=== PATIENT | male | born 1970 | race Caucasian/White ===

== ENCOUNTER 2016-11-11 15:56 | Inpatient (IN) | payer OTHER ==
[2016-11-11] MEDS ORDERED: DILTIAZEM 125 MG in SODIUM CHLORIDE 0.9% 100 ML IV ONE (15:58)
[2016-11-11] MEDS ORDERED: SODIUM CHLORIDE 0.9% 1,000 ML IV ONE (15:58)
[2016-11-11] MEDS ORDERED: NITROGLYCERIN OINT 1 INCH/GM PACKET TOPICAL STA (15:58)
[2016-11-11] MEDS ORDERED: ASPIRIN 81 MG CHEW PO STA (15:58)
[2016-11-11] MEDS ORDERED: HEPARIN SODIUM,PORCINE 5,000 UNIT/ML 1 ML VIAL IV ONE (16:00)
[2016-11-11] MEDS ORDERED: DILTIAZEM 5 MG/ML 5 ML VIAL IVP STA (16:01)
--- NOTE | 2016-11-11 16:06 | ED ---
General Adult HPI - General Chief complaint: Chest Pain Stated complaint: Chest Pain Time Seen by Provider: 11/11/16 16:00 Source: patient, RN notes reviewed Mode of arrival: ambulatory Limitations: no limitations - History of Present Illness Initial comments: This is a 45-year-old male who has a past medical history significant for OR with no intervention according to the patient. Patient states after his OR he had intermittent atrial fibrillation but he never followed up with a club steward for. Patient states he has had episodes of this pressure sensation in his chest but usually goes away. Patient states over the last 3 days been much more frequent and today about a half hour prior to arrival it became constant and much more significant. Patient states is very steady pressure in the center of his chest and he is also short of breath per patient denies any radiation of this pressure. Patient denies any sweating patient denies any nausea or vomiting. Patient states she does have anxiety is very anxious and he feels his fingers and mouth getting tingling. Patient denies any recent fever chills or cough. Patient denies any leg swelling or calf pain. - Related Data Allergies Allergy/AdvReac Type Severity Reaction Status Date / Time No Known Allergies Allergy Verified 11/11/16 16:01 Review of Systems ROS Statement: Those systems with pertinent positive or pertinent negative responses have been documented in the HPI. ROS Other: All systems not noted in ROS Statement are negative. Past Medical History Past Medical History: Memory Impairment Additional Past Medical History / Comment(s): sleep apnea, difficulty sleeping History of Any Multi-Drug Resistant Organisms: None Reported Additional Past Surgical History / Comment(s): colonoscopy Past Psychological History: Anxiety Smoking Status: Current every day smoker Past Alcohol Use History: Occasional Past Drug Use History: None Reported General Exam - General Exam Comments Initial Comments: GENERAL: Patient is well-developed and well-nourished. Patient is nontoxic and well- hydrated and is in moderate distress. ENT: Neck is soft and supple. No significant lymphadenopathy is noted. Oropharynx is clear. Moist mucous membranes. Neck has full range of motion without eliciting any pain. EYES: The sclera were anicteric and conjunctiva were pink and moist. Extraocular movements were intact and pupils were equal round and reactive to light. Eyelids were unremarkable. PULMONARY: Unlabored respirations. Good breath sounds bilaterally. No audible rales rhonchi or wheezing was noted. CARDIOVASCULAR: Patient is very tachycardic in the 150 beats a minute. ABDOMEN: Soft and nontender with normal bowel sounds. No palpable organomegaly was noted. There is no palpable pulsatile mass. SKIN: Skin is clear with no lesions or rashes and otherwise unremarkable. NEUROLOGIC: Patient is alert and oriented x3. Cranial nerves II through XII are grossly intact. Motor and sensory are also intact. Normal speech, volume and content. Symmetrical smile. MUSCULOSKELETAL: Normal extremities with adequate strength and full range of motion. No lower extremity swelling or edema. No calf tenderness. LYMPHATICS: No significant lymphadenopathy is noted PSYCHIATRIC: Patient is very anxious Limitations: no limitations Course Vital Signs 11/11/16 11/11/16 15:58 16:52 Temperature 98.5 F Pulse Rate 164 H 118 H Respiratory 22 20 Rate Blood Pressure 126/58 116/54 O2 Sat by Pulse 100 100 Oximetry Medical Decision Making - Medical Decision Making EKG shows atrial fibrillation with rapid ventricular response at 154 bpm QRS is 96 QT interval 300 QTC is 480. Patient's EKG shows ST segment depression in leads V2 through V6 as well as T-wave inversions in inferior leads. I spoke with Dr. Villegas and let him know that the EKG had changes in the patient's pressure he wanted the patient put on heparin had a Cardizem drip started as well as giving the patient some Lopressor. I also gave the patient aspirin and Nitropaste. I also gave the patient Ativan secondary for his anxiety. I'll do Lopressor to start this patient's blood pressure was coming down and his heart rate was coming down with Cardizem drip. - Lab Data Result diagrams: 11/11/16 16:00 11/11/16 16:00 Lab Results 11/11/16 11/11/16 11/11/16 Range/Units 16:00 16:00 16:00 WBC 11.8 H (3.8-10.6) k/uL RBC 4.92 (4.30-5.90) m/uL Hgb 15.3 (13.0-17.5) gm/dL Hct 42.3 (39.0-53.0) % MCV 86.0 (80.0-100.0) fL MCH 31.1 (25.0-35.0) pg MCHC 36.1 (31.0-37.0) g/dL RDW 12.6 (11.5-15.5) % Plt Count 285 (150-450) k/uL Neutrophils % 41 % Lymphocytes % 44 % Monocytes % 8 % Eosinophils % 3 % Basophils % 1 % Neutrophils # 4.9 (1.3-7.7) k/uL Lymphocytes # 5.2 H (1.0-4.8) k/uL Monocytes # 0.9 (0-1.0) k/uL Eosinophils # 0.4 (0-0.7) k/uL Basophils # 0.1 (0-0.2) k/uL Manual Slide Review Performed Toxic Granulation Present PT (9.0-12.0) sec INR (<1.1) APTT (22.0-30.0) sec Sodium 140 (137-145) mmol/L Potassium 3.7 (3.5-5.1) mmol/L Chloride 104 (98-107) mmol/L Carbon Dioxide 19 L (22-30) mmol/L Anion Gap 17 mmol/L BUN 14 (9-20) mg/dL Creatinine 0.80 (0.66-1.25) mg/dL Est GFR (MDRD) Af Amer >60 (>60 ml/min/1.73 sqM) Est GFR (MDRD) Non-Af >60 (>60 ml/min/1.73 sqM) Glucose 107 H (74-99) mg/dL Calcium 9.4 (8.4-10.2) mg/dL Magnesium 2.0 (1.6-2.3) mg/dL Total Bilirubin 0.5 (0.2-1.3) mg/dL AST 31 (17-59) U/L ALT 52 (21-72) U/L Alkaline Phosphatase 92 (38-126) U/L Total Creatine Kinase 101 (55-170) U/L CK-MB (CK-2) 0.7 (0.0-2.4) ng/mL CK-MB (CK-2) Rel Index 0.7 Troponin I <0.012 (0.000-0.034) ng/mL Total Protein 7.3 (6.3-8.2) g/dL Albumin 4.4 (3.5-5.0) g/dL 11/11/16 Range/Units 16:00 WBC (3.8-10.6) k/uL RBC (4.30-5.90) m/uL Hgb (13.0-17.5) gm/dL Hct (39.0-53.0) % MCV (80.0-100.0) fL MCH (25.0-35.0) pg MCHC (31.0-37.0) g/dL RDW (11.5-15.5) % Plt Count (150-450) k/uL Neutrophils % % Lymphocytes % % Monocytes % % Eosinophils % % Basophils % % Neutrophils # (1.3-7.7) k/uL Lymphocytes # (1.0-4.8) k/uL Monocytes # (0-1.0) k/uL Eosinophils # (0-0.7) k/uL Basophils # (0-0.2) k/uL Manual Slide Review Toxic Granulation PT 10.4 (9.0-12.0) sec INR 1.0 (<1.1) APTT 26.6 (22.0-30.0) sec Sodium (137-145) mmol/L Potassium (3.5-5.1) mmol/L Chloride (98-107) mmol/L Carbon Dioxide (22-30) mmol/L Anion Gap mmol/L BUN (9-20) mg/dL Creatinine (0.66-1.25) mg/dL Est GFR (MDRD) Af Amer (>60 ml/min/1.73 sqM) Est GFR (MDRD) Non-Af (>60 ml/min/1.73 sqM) Glucose (74-99) mg/dL Calcium (8.4-10.2) mg/dL Magnesium (1.6-2.3) mg/dL Total Bilirubin (0.2-1.3) mg/dL AST (17-59) U/L ALT (21-72) U/L Alkaline Phosphatase (38-126) U/L Total Creatine Kinase (55-170) U/L CK-MB (CK-2) (0.0-2.4) ng/mL CK-MB (CK-2) Rel Index Troponin I (0.000-0.034) ng/mL Total Protein (6.3-8.2) g/dL Albumin (3.5-5.0) g/dL Critical Care Time Critical Care Time: Yes Total Critical Care Time: 35 Disposition Clinical Impression: Atrial fibrillation with rapid ventricular response Disposition: ADMITTED IP TO THIS HOSP Referrals: Nonstaff,Physician [Primary Care Provider] - 1-2 days Time of Disposition: 16:55
[2016-11-11] MEDS: HEPARIN SODIUM,PORCINE/D5W PMX 25,000 UNIT in DEXTROSE/WATER 1 500ML.BAG IV SCH (16:12)
[2016-11-11 16:19] LABS: Basophils # (A) 0.1 k/uL (0-0.2); Basophils % (A) 1 %; CH 30.4; CHCM 35.5; Eosinophils # (A) 0.4 k/uL (0-0.7); Eosinophils % (A) 3 %; HCT 42.3 % (39.0-53.0); HDW 2.68; HGB 15.3 gm/dL (13.0-17.5); Luc # (Auto) 0.38; Luc % (Auto) 3; Lymphocytes # (A) 5.2 k/uL (1.0-4.8); Lymphocytes % (A) 44 %; MCH 31.1 pg (25.0-35.0); MCHC 36.1 g/dL (31.0-37.0); Mean Platelet Volume 6.8; Monocytes # (A) 0.9 k/uL (0-1.0); Monocytes % (A) 8 %; Neutrophils # (A) 4.9 k/uL (1.3-7.7); Neutrophils % (A) 41 %; RBC 4.92 m/uL (4.30-5.90); RDW 12.6 % (11.5-15.5); WBC 11.8 k/uL (3.8-10.6); WBC (Perox) 10.73
[2016-11-11 16:27] LABS: Partial Thromboplastin Time 26.6 sec (22.0-30.0); Prothrombin Time 10.4 sec (9.0-12.0)
--- NOTE | 2016-11-11 16:30 | XR ---
EXAMINATION TYPE: XR chest 2V DATE OF EXAM: 11/11/2016 COMPARISON: NONE INDICATION: Chest pain TECHNIQUE: Frontal and lateral views of the chest are obtained. FINDINGS: The heart size is normal. The pulmonary vasculature is normal. The lungs are clear. IMPRESSION: 1. No acute pulmonary process.
[2016-11-11 16:31] LABS: Manual Review Performed; Toxic Granulation Present
[2016-11-11 16:34] LABS: ALT 52 U/L (21-72); AST 31 U/L (17-59); Alkaline Phosphatase 92 U/L (38-126); Anion Gap 17 mmol/L; Blood Urea Nitrogen 14 mg/dL (9-20); Calcium 9.4 mg/dL (8.4-10.2); Carbon Dioxide 19 mmol/L (22-30); Chloride 104 mmol/L (98-107); Glucose 107 mg/dL (74-99); Non-African American GFR(MDRD) >60 (>60 ml/min/1.73 sqM); Potassium 3.7 mmol/L (3.5-5.1); Sodium 140 mmol/L (137-145); Total Bilirubin 0.5 mg/dL (0.2-1.3); Total Protein 7.3 g/dL (6.3-8.2)
[2016-11-11 16:36] LABS: Creatine Kinase 101 U/L (55-170)
[2016-11-11 16:49] LABS: Creatine Kinase MB 0.7 ng/mL (0.0-2.4); Troponin I <0.012 ng/mL (0.000-0.034)
[2016-11-11] MEDS ORDERED: NITROGLYCERIN SL TABS 0.4 MG TAB SUBLINGUAL PRN (16:55)
[2016-11-11] MEDS: METOPROLOL TARTRATE 5 MG/5 ML VIAL IVP SCH (17:08)
[2016-11-11 18:35] VITALS: BMI 28.4
[2016-11-11] MEDS ORDERED: TEMAZEPAM 30 MG CAP PO SCH (21:00)
[2016-11-11 22:23] VITALS: RESP 18
[2016-11-11 22:39] LABS: Creatine Kinase MB 0.7 ng/mL (0.0-2.4)
[2016-11-11 22:45] LABS: Troponin I 0.048 ng/mL (0.000-0.034)
[2016-11-11] MEDS ORDERED: ALPRAZolam 0.25 MG TAB PO PRN (23:17)
[2016-11-11] MEDS ORDERED: Acetaminophen-Codeine 300-30mg TAB PO PRN (23:24)
[2016-11-11] MEDS ORDERED: TEMAZEPAM 15 MG CAP PO SCH (23:27)
[2016-11-12] MEDS ORDERED: NITROGLYCERIN OINT 1 INCH/GM PACKET TOPICAL SCH
[2016-11-12 00:15] LABS: Appearance,Urine Clear (Clear); Bilirubin,Urine Negative (Negative); Glucose,Urine (UA) Negative (Negative); Ketones,Urine Negative (Negative); Leukocyte Esterase,Urine Negative (Negative); Nitrite,Urine Negative (Negative); Protein,Urine Negative (Negative); Specific Gravity,Urine 1.008 (1.001-1.035); UA Billing (MACRO vs. MICRO) CHEM; Urobilinogen,Urine <2.0 mg/dL (<2.0)
[2016-11-12 04:53] LABS: Basophils # (A) 0.1 k/uL (0-0.2); Basophils % (A) 1 %; CH 29.9; CHCM 34.3; Eosinophils # (A) 0.3 k/uL (0-0.7); Eosinophils % (A) 3 %; HCT 40.5 % (39.0-53.0); HDW 2.63; HGB 13.9 gm/dL (13.0-17.5); Luc # (Auto) 0.22; Luc % (Auto) 2; Lymphocytes # (A) 2.8 k/uL (1.0-4.8); Lymphocytes % (A) 27 %; MCH 30.1 pg (25.0-35.0); MCHC 34.5 g/dL (31.0-37.0); MCV 87.4 fL (80.0-100.0); Mean Platelet Volume 6.6; Monocytes # (A) 0.7 k/uL (0-1.0); Monocytes % (A) 7 %; Neutrophils # (A) 6.4 k/uL (1.3-7.7); Neutrophils % (A) 61 %; RBC 4.63 m/uL (4.30-5.90); RDW 12.3 % (11.5-15.5); WBC 10.4 k/uL (3.8-10.6); WBC (Perox) 10.96
[2016-11-12 05:08] LABS: Anion Gap 9 mmol/L; Blood Urea Nitrogen 11 mg/dL (9-20); Calcium 8.8 mg/dL (8.4-10.2); Carbon Dioxide 24 mmol/L (22-30); Chloride 108 mmol/L (98-107); Cholesterol 160 mg/dL (<200); Glucose 97 mg/dL (74-99); HDL Cholesterol 42 mg/dL (40-60); Non-African American GFR(MDRD) >60 (>60 ml/min/1.73 sqM); Potassium 4.2 mmol/L (3.5-5.1); Sodium 141 mmol/L (137-145); Triglycerides 55 mg/dL (<150)
[2016-11-12 05:46] LABS: Creatine Kinase MB 0.6 ng/mL (0.0-2.4)
[2016-11-12 05:48] LABS: Troponin I 0.038 ng/mL (0.000-0.034)
[2016-11-12] MEDS ORDERED: ASPIRIN 325 MG TAB PO SCH (09:00)
[2016-11-12] MEDS ORDERED: PANTOPRAZOLE 40 MG TABLET PO SCH (09:00)
[2016-11-12] MEDS: HEPARIN SODIUM,PORCINE/D5W PMX 25,000 UNIT in DEXTROSE/WATER 1 500ML.BAG IV SCH (09:20)
[2016-11-12 11:54] VITALS: BP 116/76; PULSE 76; TEMP 97
--- NOTE | 2016-11-12 15:14 | P.CRDCN ---
History of Present Illness Consult date: 11/12/16 History of present illness: This is a 45-year-old gentleman with history of paroxysmal cardiac arrhythmias for which he has been in the emergency room several times. He claims that in 2009, he had a prolonged episode of palpitations and was evaluated in the hospital. At that time patient had probably atrial fibrillation with mildly elevated troponin values. Subsequently was seen by a measurement coordinator and had a stress test and echocardiogram which were negative. As. Over the last several years. Patient has had episodes of intermittent palpitations lasting about 25 minutes. Patient came to [place] to visit family and friends. He is admitted to the hospital with prolonged episode of palpitations. He was found to be any atrial fibrillation with rapid ventricular response. Patient was treated with heparin and IV Cardizem. Patient converted back to sinus rhythm. He wants to go home. Patient will have follow-up with measurement coordinator one he goes back to [place]. Review of Systems REVIEW OF SYSTEMS: CONSTITUTIONAL:. Patient is doing well. No complaints of fever or chills EYES: Denies diplopia, blurring of vision EARS, NOSE, MOUTH, THROAT: Denies headaches, denies sore throat. CARDIOVASCULAR: As per HPI RESPIRATORY: Denies shortness of breath, denies cough. GASTROINTESTINAL: Denies change in appetite, denies abdominal pain, denies diarrhea GENITOURINARY: Denies hematuria, denies infections. MUSKULOSKELETAL: Denies pain, denies swelling. Denies any cramps or claudication INTEGUMENTARY: Denies rash, denies eczema. NEUROLOGICAL: Denies focal weakness, or visual disturbance. Denies any dizziness or syncope PSYCHIATRIC: Denies anxiety, denies depression. HEMATOLOGIC/LYMPHATIC: Denies any bleeding, denies enlarged lymph nodes. Past Medical History Past Medical History: Atrial Fibrillation, Chest Pain / Angina, GERD/Reflux, Memory Impairment, Osteoarthritis (OA), Syncope Additional Past Medical History / Comment(s): sleep apnea, difficulty sleeping History of Any Multi-Drug Resistant Organisms: None Reported Additional Past Surgical History / Comment(s): colonoscopy,stress test Past Anesthesia/Blood Transfusion Reactions: No Reported Reaction Past Psychological History: Anxiety, PTSD Additional Psychological History / Comment(s): hx of service >20 years Smoking Status: Current every day smoker Past Alcohol Use History: Occasional Past Drug Use History: None Reported - Past Family History Father Family Medical History: Coronary Artery Disease (CAD), Diabetes Mellitus Additional Family Medical History / Comment(s): CABG Mother Family Medical History: Diabetes Mellitus, Hypertension Medications and Allergies Home Medications Medication Instructions Recorded Confirmed Type Eszopiclone [Lunesta] 3 mg PO HS 11/11/16 11/11/16 History Pantoprazole Sodium [Protonix] 40 mg PO DAILY 11/11/16 11/11/16 History Allergies Allergy/AdvReac Type Severity Reaction Status Date / Time No Known Allergies Allergy Verified 11/11/16 16:58 Physical Exam Vitals: Vital Signs Temp Pulse Pulse Resp BP BP Pulse Ox 11/12/16 11:52 97 F L 76 18 116/76 94 L 11/12/16 08:49 97.9 F 72 18 97/54 95 11/12/16 04:00 97.1 F L 72 18 94/57 94 L 11/11/16 23:00 97.0 F L 78 18 109/61 95 11/11/16 20:00 97.9 F 86 18 122/72 95 11/11/16 18:30 99.2 F 99 16 108/72 97 11/11/16 17:45 98.3 F 101 H 18 117/68 99 11/11/16 17:34 99.2 F 99 16 108/72 97 11/11/16 17:09 92 18 11/11/16 16:52 118 H 20 116/54 100 11/11/16 15:58 98.5 F 164 H 22 126/58 100 Intake and Output 11/12/16 11/12/16 11/12/16 06:59 14:59 22:59 Intake Total 175.182 453.558 Balance 175.182 453.558 Intake: Intake, IV Titration 175.182 93.558 Amount Heparin Sodium,Porcine/ 175.182 93.558 D5w Pmx 25,000 unit In Dextrose/Water 1 500ml. bag @ 11 UNITS/KG/HR 19. 95 mls/hr IV .Q24H COUNT INCLUDES THE [facility] Rx #:[id number] Oral 360 Other: Voiding Method Toilet Toilet # Voids 2 2 # Bowel Movements 0 Weight 91.8 kg GENERAL EXAM: Patient is alert and oriented and doesn't appear to be in any acute distress HEENT: Normocephalic. Normal reaction of pupils, equal size, normal range of extraocular motion. No erythema or exudates in the throat. NECK: No masses, no nuchal rigidity. CHEST: No chest wall deformity. LUNGS: Equal air entry with no crackles or wheeze. HEART: S1 and S2 normal with no audible mumurs or gallops. Regular rhythm, femorals equal on both sides.. ABDOMEN: No hepatosplenomegaly, normal bowel sounds, no guarding or rigidity. SKIN: No rashes CENTRAL NERVOUS SYSTEM: No focal deficits. EXTREMITIES: No cyanosis, clubbing or edema. Results 11/12/16 04:14 11/12/16 04:14 Cardiac Enzymes 11/11/16 11/11/16 11/11/16 Range/Units 16:00 16:00 21:51 AST 31 (17-59) U/L CK-MB (CK-2) 0.7 0.7 (0.0-2.4) ng/mL Troponin I <0.012 0.048 H* (0.000-0.034) ng/mL 11/12/16 Range/Units 04:14 AST (17-59) U/L CK-MB (CK-2) 0.6 (0.0-2.4) ng/mL Troponin I 0.038 H* (0.000-0.034) ng/mL Coagulation 11/11/16 11/11/16 11/12/16 Range/Units 16:00 21:51 04:14 PT 10.4 (9.0-12.0) sec APTT 26.6 42.8 H 46.3 H (22.0-30.0) sec 11/12/16 Range/Units 12:05 PT (9.0-12.0) sec APTT 50.9 H (22.0-30.0) sec Lipids 11/12/16 Range/Units 04:14 Triglycerides 55 (<150) mg/dL Cholesterol 160 (<200) mg/dL HDL Cholesterol 42 (40-60) mg/dL CBC 11/11/16 11/12/16 Range/Units 16:00 04:14 WBC 11.8 H 10.4 (3.8-10.6) k/uL RBC 4.92 4.63 (4.30-5.90) m/uL Hgb 15.3 13.9 (13.0-17.5) gm/dL Hct 42.3 40.5 (39.0-53.0) % Plt Count 285 243 (150-450) k/uL Comprehensive Metabolic Panel 11/11/16 11/12/16 Range/Units 16:00 04:14 Sodium 140 141 (137-145) mmol/L Potassium 3.7 4.2 (3.5-5.1) mmol/L Chloride 104 108 H (98-107) mmol/L Carbon Dioxide 19 L 24 (22-30) mmol/L BUN 14 11 (9-20) mg/dL Creatinine 0.80 0.69 (0.66-1.25) mg/dL Glucose 107 H 97 (74-99) mg/dL Calcium 9.4 8.8 (8.4-10.2) mg/dL AST 31 (17-59) U/L ALT 52 (21-72) U/L Alkaline Phosphatase 92 (38-126) U/L Total Protein 7.3 (6.3-8.2) g/dL Albumin 4.4 (3.5-5.0) g/dL Current Medications Generic Name Dose Route Start Last Admin Trade Name Freq PRN Reason Stop Dose Admin Acetaminophen/Codeine Phosphate 1 each 11/11/16 23:24 Tylenol #3 PO Q6HR PRN Pain Alprazolam 0.25 mg 11/11/16 23:17 Xanax PO TID PRN Anxiety Aspirin 325 mg 11/12/16 09:00 11/12/16 08:48 Aspirin PO 325 mg DAILY TOBI Administration Heparin Sodium/Dextrose 25,000 500 mls @ 19.95 mls/hr 11/11/16 16:00 09:20 unit/ IV Solution IV 15.02 units/kg/hr .Q24H TOBI 27.25 mls/hr Protocol Administration 11 UNITS/KG/HR Nitroglycerin 0.4 mg 11/11/16 16:55 Nitrostat SUBLINGUAL Q5M PRN Chest Pain Pantoprazole Sodium 40 mg 11/12/16 09:00 11/12/16 08:48 Protonix PO 40 mg DAILY TOBI Administration Temazepam 15 mg 11/11/16 23:27 Restoril PO HS TOBI Intake and Output 11/12/16 11/12/16 11/12/16 06:59 14:59 22:59 Intake Total 175.182 453.558 Balance 175.182 453.558 Intake: Intake, IV Titration 175.182 93.558 Amount Heparin Sodium,Porcine/ 175.182 93.558 D5w Pmx 25,000 unit In Dextrose/Water 1 500ml. bag @ 11 UNITS/KG/HR 19. 95 mls/hr IV .Q24H TOBI Rx #:[id number] Oral 360 Other: Voiding Method Toilet Toilet # Voids 2 2 # Bowel Movements 0 Weight 91.8 kg 11/12/16 04:14 11/12/16 04:14 EKG Interpretations (text) Initial EKG showed atrial fibrillation with RVR. Subsequent EKG showed sinus rhythm without any acute ST-T changes. Assessment and Plan (1) Persistent atrial fibrillation Status: Acute (2) Atrial fibrillation with rapid ventricular response Status: Acute Plan: Patient is back in sinus rhythm and is feeling well. His troponins are borderline elevated, Most probably related to tachycardia and atrial fibrillation. Patient wants to go home. He is being discharged home on small dose of beta shweta and aspirin. Patient will have follow-up with his own measurement coordinator
[2016-11-12] MEDS ORDERED: METOPROLOL TARTRATE 12.5 MG TAB PO SCH (21:00)
--- NOTE | 2016-11-19 10:53 | HP ---
DATE OF SERVICE: 11/11/2016 CHIEF COMPLAINT: Palpitation. HISTORY OF PRESENT ILLNESS: This 45-year-old gentleman with a previous history of atrial fibrillation and GERD was admitted with palpitation to [facility]. The patient was found to be in atrial fibrillation with a fast ventricular rate. The patient was on Cardizem drip. he improved significantly. Cardiology evaluated the patient. No chest pain. No palpitation. No fever. No cough. PAST MEDICAL HISTORY: 1. Atrial fibrillation. 2. GERD. 3. Memory impairment. Medications prior to admission: 1. Lunesta. 2. Ecotrin. ALLERGIES: NONE. FAMILY HISTORY: History of CAD, CABG. SOCIAL HISTORY: History of smoking. Occasional alcohol. REVIEW OF SYSTEMS: ENT: No diminished hearing. No diminished vision. CARDIOVASCULAR SYSTEM: As mentioned earlier. RESPIRATORY SYSTEM: No cough, hemoptysis. GI: No nausea, vomiting. : No dysuria, retention. NERVOUS SYSTEM: No numbness, weakness. ALLERGY/IMMUNOLOGY: No asthma, hayfever. MUSCULOSKELETAL: As mentioned earlier. HEMATOLOGY/ONCOLOGY: No history of anemia. ENDOCRINE: No history of diabetes or hypothyroidism. CONSTITUTIONAL: As mentioned earlier. DERMATOLOGIC: Negative. RHEUMATOLOGIC: Negative. PSYCHIATRY: As mentioned earlier. PHYSICAL EXAMINATION: Patient is alert and oriented x3. Pulse is 76, blood pressure 116/76, respiration 18, temperature 97 degrees, pulse ox 94% on room air. HEENT: Conjunctivae normal. NECK: No jugular venous congestion. CARDIAC: S1, S2 muffled. RESPIRATORY: Breath sounds diminished at the bases. No rhonchi. No crackles. ABDOMEN: Soft. Non-tender. LEGS: No edema. No swelling. NERVOUS SYSTEM: No focal deficit. LABS: Troponin 0.048. Other labs are noted. ASSESSMENT: 1. Atrial fibrillation with a fast ventricular rate. 2. Troponin 0.048, indeterminate. 3. History of gastroesophageal reflux disease. 4. Multiple medical issues. RECOMMENDATIONS AND DISCUSSION: I recommend to continue current medication, continue with symptomatic treatment, continue with Cardizem. Closely follow with Cardiology. Further recommendations to follow. MTDD
== END 2016-11-12 15:50 | disposition home or self-care (01) | DRG 310 ==
LOC: EC 15:56 → 6SEL 16:55
PROVIDERS: ADMIT Internal Medicine; ATTEND Internal Medicine
DX: I48.1 Persistent atrial fibrillation (principal); F41.9 Anxiety disorder, unspecified; F17.200 Nicotine dependence, unspecified, uncomplicated; F43.10 Post-traumatic stress disorder, unspecified; G47.30 Sleep apnea, unspecified; K21.9 Gastro-esophageal reflux disease without esophagitis; M19.90 Unspecified osteoarthritis, unspecified site; I25.2 Old myocardial infarction; Z82.49 Family history of ischemic heart disease and other diseases of the circulatory system
CPT/HCPCS: 36415; 71020; 80048; 80053; 80061; 81003; 82550; 82553; 83735; 84484; 85025; 85610; 85730; 87086; 93005; 96365; 96368; 96376; 99291